=== PATIENT | male | born 1940 | race Caucasian/White ===

== ENCOUNTER 2022-03-28 09:15 | Inpatient (IN) | payer OTHER ==
[~2022-03-28] VITALS: Ht 170.2 cm; Wt 90.7 kg
[~2022-03-28 09:15] MED LIST: CATAFLAM50 MG PO; CIPRO500 MG PO; PERCOCET 5/321 UDTAB PO; RECTICARE30 GM TP
[2022-03-28] MEDS ORDERED: LEVOTHYROXINE25 MCG PO (11:22)
[2022-03-28] MEDS ORDERED: ENALAPRIL MALEA10 MG PO (11:22)
[2022-03-28] MEDS ORDERED: KRISTALOSE20 GM PO (11:22)
[2022-03-28] MEDS ORDERED: SIMVASTATIN5 MG PO (11:22)
[2022-03-28] MEDS ORDERED: METFORMIN HCL500 M3 PO (11:23)
[2022-03-28] MEDS ORDERED: ECOTRIN81 MG PO (11:23)
[2022-04-02] MEDS ORDERED: ATORVASTATIN CA40 MG (09:52)
[2022-04-02] MEDS ORDERED: GABAPENTIN400 MG (09:52)
[2022-04-02] MEDS ORDERED: NAPROXEN500 MG (09:52)
[2022-04-02] MEDS ORDERED: LEVOTHYROXINE88 MCG (09:52)
[2022-04-05] MEDS ORDERED: ULTRACET PO (12:28)
[2022-04-05] MEDS ORDERED: INTESTINEX680 M1 PO (12:28)
[2022-04-05] MEDS ORDERED: INTEGRA F CAPS1 EACH PO (12:28)
== END 2022-04-05 14:07 | disposition home or self-care (01) | DRG 331 ==
LOC: SURH 04-02 05:30 → O/R 04-02 05:30 → SURH 04-02 07:00
PROVIDERS: ADMIT Surgery; ATTEND Surgery
PROC: 0DTG4ZZ Resection of Left Large Intestine, Percutaneous Endoscopic Approach (ICD-10-PCS; principal; 2022-04-02 07:00)
DX: C18.6 Malignant neoplasm of descending colon (principal); Z20.822 Contact with and (suspected) exposure to COVID-19